=== PATIENT | female | born 1960 | race Caucasian/White ===

== ENCOUNTER 2025-01-15 17:00 | Inpatient (IN) | payer MEDICARE, OTHER ==
[~2025-01-15] VITALS: Ht 152.4 cm; Wt 57.2 kg
[2025-01-15 17:53] LABS: BASOPHILS # (AUTO) 0.1 K/uL (0.0-0.2); EOSINOPHILS # (AUTO) 0.8 K/uL (0.0-0.7); EOSINOPHILS % (AUTO) 5.7 % (0.0-6.0); HEMATOCRIT 28 % (33-45); HEMOGLOBIN 8.9 g/dL (11.5-14.8); LYMPHOCYTES # (AUTO) 1.5 K/uL (0.8-4.8); LYMPHOCYTES % (AUTO) 11.1 % (20.0-44.0); MEAN CORPUSCULAR HEMOGLOBIN 21 PG (26.0-33.0); MEAN CORPUSCULAR HGB CONC 31 g/dl (31.0-36.0); MEAN CORPUSCULAR VOLUME 67 fL (82-100); MONOCYTES # (AUTO) 0.9 K/uL (0.1-1.30); NEUTROPHILS # (AUTO) 10.2 K/uL (1.8-8.9); NEUTROPHILS % (AUTO) 75.2 % (43.0-81.0); PLATELET COUNT (AUTO) 181 K/uL (150-450); RED BLOOD CELL COUNT(AUTO) 4.27 MIL/uL (4.0-5.2); RED CELL DISTRIBUTION WIDTH 17.9 % (11.5-15.0); WHITE BLOOD COUNT (AUTO) 13.5 K/uL (4.3-11.0)
[2025-01-15 20:13] LABS: CALCIUM, SERUM 7.5 mg/dL (8.5-10.1); CARBON DIOXIDE 22 mmol/L (21-32); CHLORIDE 100 mmol/L (98-107); GLUCOSE 108 mg/dL (74-106); POTASSIUM 5.5 mmol/L (3.5-5.1); SODIUM SERUM 136 mmol/L (136-145); UREA NITROGEN, BLOOD 73 mg/dL (7-18)
[2025-01-15 20:52] LABS: NT-PRO BNP > 25000 pg/mL (0-125)
[2025-01-15] MEDS ORDERED: INSULIN REGULAR, HUMAN 100 UNIT/ML 10 ML VIAL ONE (20:53)
[2025-01-15] MEDS ORDERED: SODIUM POLYSTYRENE SULFONATE 15 G/60 ML BOTTLE ONE ×2 (20:53→20:57)
[2025-01-15] MEDS ORDERED: DEXTROSE 50%-WATER 50 ML DISP.SYRIN ONE (20:53)
[2025-01-15] MEDS: INSULIN REGULAR, HUMAN 100 UNIT/ML 10 ML VIAL IV ONE (21:00)
[2025-01-15] MEDS ORDERED: ONDANSETRON HCL/PF 4 MG/2 ML VIAL IVP PRN (21:00)
[2025-01-15] MEDS: DEXTROSE 50%-WATER 50 ML DISP.SYRIN IV ONE (21:00)
[2025-01-15] MEDS: ALBUTEROL FS 2.5 MG/3 ML VIAL.NEB NEB ONE (21:02)
[2025-01-15] MEDS ORDERED: ALBUTEROL FS 2.5 MG/3 ML VIAL.NEB ONE (21:04)
[2025-01-15] MEDS: SODIUM POLYSTYRENE SULFONATE 15 G/60 ML BOTTLE PO ONE (21:05)
[2025-01-15 21:10] VITALS: O2SAT 95
[2025-01-15 22:10] VITALS: O2SAT 99
[2025-01-15 22:17] LABS: EOSINOPHILS % (MANUAL) 6 % (0-4); LYMPHOCYTES % (MANUAL) 5 % (16-48); MONOCYTES % (MANUAL) 6 % (0-11.0); NEUTROPHILS % (MANUAL) 78 (42-76)
[2025-01-15 22:18] LABS: PLATELET ESTIMATE ADEQUATE
[2025-01-15 22:19] LABS: ANISOCYTOSIS 1+
[2025-01-15] MEDS: ACETAMINOPHEN 325 MG TABLET PO PRN (22:30)
[2025-01-16] VITALS (8 sets, daily range): BP systolic 145–163; BP diastolic 81–102; TEMP 97–98.8; O2SAT 91–99
[2025-01-16 06:56] LABS: CALCIUM, SERUM 7.4 mg/dL (8.5-10.1); CARBON DIOXIDE 21 mmol/L (21-32); CHLORIDE 106 mmol/L (98-107); CREATININE 6.5 mg/dL (0.6-1.3); GLUCOSE 91 mg/dL (74-106); MAGNESIUM 1.7 mg/dL (1.8-2.4); POTASSIUM 5.9 mmol/L (3.5-5.1); SODIUM SERUM 142 mmol/L (136-145); UREA NITROGEN, BLOOD 74 mg/dL (7-18)
[2025-01-16 07:14] LABS: BASOPHILS # (AUTO) 0.2 K/uL (0.0-0.2); BASOPHILS % (AUTO) 1.3 % (0.0-2.0); EOSINOPHILS # (AUTO) 0.4 K/uL (0.0-0.7); HEMATOCRIT 32 % (33-45); LYMPHOCYTES # (AUTO) 2.4 K/uL (0.8-4.8); LYMPHOCYTES % (AUTO) 20.8 % (20.0-44.0); MEAN CORPUSCULAR HEMOGLOBIN 21 PG (26.0-33.0); MEAN CORPUSCULAR HGB CONC 29 g/dl (31.0-36.0); MEAN CORPUSCULAR VOLUME 73 fL (82-100); MONOCYTES # (AUTO) 0.6 K/uL (0.1-1.30); MONOCYTES % (AUTO) 5.5 % (2.0-12.0); NEUTROPHILS # (AUTO) 7.8 K/uL (1.8-8.9); NEUTROPHILS % (AUTO) 68.4 % (43.0-81.0); PLATELET COUNT (AUTO) 197 K/uL (150-450); RED BLOOD CELL COUNT(AUTO) 4.32 MIL/uL (4.0-5.2); WHITE BLOOD COUNT (AUTO) 11.4 K/uL (4.3-11.0)
[2025-01-16] MEDS: PANTOPRAZOLE 40 MG TABLET.DR PO SCH (08:15)
[2025-01-16 11:08] LABS: ANISOCYTOSIS 1+; EOSINOPHILS % (MANUAL) 3 % (0-4); LYMPHOCYTES % (MANUAL) 10 % (16-48); MONOCYTES % (MANUAL) 3 % (0-11.0); NEUTROPHILS % (MANUAL) 84 (42-76); PLATELET ESTIMATE ADEQUATE
[2025-01-16] MEDS ORDERED: HYDR-4077 PO (11:46)
[2025-01-16] MEDS ORDERED: MULT1TAB70 PO (11:46)
[2025-01-16] MEDS ORDERED: LORA-259 PO (11:46)
[2025-01-16] MEDS ORDERED: HEPA50007 SQ (11:46)
[2025-01-16] MEDS ORDERED: CLONIDINE PATCH TP (11:46)
[2025-01-16] MEDS ORDERED: VANC250C12 PO (11:46)
[2025-01-16] MEDS ORDERED: CARV6.252 PO (11:46)
[2025-01-16] MEDS ORDERED: ACET160L44 PO (11:46)
[2025-01-16] MEDS ORDERED: ACETAMINOPHEN PO PRN (12:30)
[2025-01-16] MEDS: hydrALAZINE HCL 50 MG TABLET PO SCH (13:00)
[2025-01-16] MEDS: ALTEPLASE CATHFLO 2 MG/VIAL XX ONE (14:17)
[2025-01-16] MEDS: LORAZEPAM 1 MG TABLET PO PRN (14:28)
[2025-01-16] MEDS: CARVEDILOL 6.25 MG TABLET PO SCH (16:27)
[2025-01-16] MEDS: DEXTROSE 50%-WATER 50 ML DISP.SYRIN IVP ONE (18:39)
[2025-01-16] MEDS: Calcium Gluconate 1GM/10ML 4.65 MEQ in IV NS 0.9% 100 ML IV ONE (19:01)
[2025-01-16] MEDS: INSULIN REGULAR, HUMAN 100 UNIT/ML 10 ML VIAL IV ONE (19:01)
[2025-01-16] MEDS: ALBUTEROL FS 2.5 MG/3 ML VIAL.NEB NEB ONE (20:12)
[2025-01-16] MEDS: HEPARIN SODIUM, PORCINE 5000 UNITS/1 ML VIAL SQ SCH (21:00)
[2025-01-16 21:54] LABS: CALCIUM, SERUM 7.5 mg/dL (8.5-10.1); CREATININE 6.8 mg/dL (0.6-1.3)
[2025-01-16] MEDS ORDERED: SODIUM POLYSTYRENE SULFONATE 15 G/60 ML BOTTLE PO ONE (23:30)
[2025-01-16] MEDS: SODIUM POLYSTYRENE SULFONATE 15 G/60 ML BOTTLE PO ONE (23:52)
[2025-01-17] VITALS (8 sets, daily range): BP systolic 121–171; BP diastolic 80–95; TEMP 96.8–98.2; O2SAT 91–97
[2025-01-17] MEDS: ZOLPIDEM TARTRATE 5 MG TABLET PO PRN (00:16)
[2025-01-17 05:10] LABS: HEPATITIS B SURFACE AB (QUAL) Non Reactive (.)
[2025-01-17 06:42] LABS: BASOPHILS # (AUTO) 0.1 K/uL (0.0-0.2); BASOPHILS % (AUTO) 1.2 % (0.0-2.0); EOSINOPHILS # (AUTO) 0.5 K/uL (0.0-0.7); EOSINOPHILS % (AUTO) 4.1 % (0.0-6.0); HEMATOCRIT 26 % (33-45); LYMPHOCYTES # (AUTO) 1.2 K/uL (0.8-4.8); LYMPHOCYTES % (AUTO) 10.5 % (20.0-44.0); MEAN CORPUSCULAR HEMOGLOBIN 20 PG (26.0-33.0); MEAN CORPUSCULAR HGB CONC 31 g/dl (31.0-36.0); MEAN CORPUSCULAR VOLUME 66 fL (82-100); MONOCYTES # (AUTO) 0.6 K/uL (0.1-1.30); MONOCYTES % (AUTO) 5.4 % (2.0-12.0); NEUTROPHILS # (AUTO) 8.9 K/uL (1.8-8.9); NEUTROPHILS % (AUTO) 78.8 % (43.0-81.0); PLATELET COUNT (AUTO) 212 K/uL (150-450); RED BLOOD CELL COUNT(AUTO) 3.96 MIL/uL (4.0-5.2); RED CELL DISTRIBUTION WIDTH 17.5 % (11.5-15.0); WHITE BLOOD COUNT (AUTO) 11.3 K/uL (4.3-11.0)
[2025-01-17 07:09] LABS: CALCIUM, SERUM 7.7 mg/dL (8.5-10.1); POTASSIUM 5.8 mmol/L (3.5-5.1)
[2025-01-17 07:32] LABS: MAGNESIUM 1.5 mg/dL (1.8-2.4)
[2025-01-17 07:45] LABS: PHOSPHORUS 10.9 mg/dL (2.5-4.9)
[2025-01-17 08:58] LABS: HYPOCHROMASIA 1+; PLATELET ESTIMATE ADEQUATE
[2025-01-17 08:59] LABS: ANISOCYTOSIS 1+
[2025-01-17] MEDS: MULTIVITAMINS,THERAGRAN 1 UDTAB TABLET PO SCH (09:45)
[2025-01-17] MEDS: SODIUM ZIRCONIUM CYCLOSILICATE 10 GM POWD.PACK PO SCH (12:05)
[2025-01-17] MEDS: VANCOMYCIN HCL 125 MG/2.5 ML ORAL.SUSP PO SCH (12:06)
[2025-01-17] MEDS: CALCIUM ACETATE 667 MG CAP/TAB PO SCH (12:06)
[2025-01-17] MEDS: SEVELAMER CARBONATE 800 MG TABLET PO SCH (12:06)
[2025-01-17] MEDS: ALPRAZOLAM 0.25 MG TABLET PO PRN (14:18)
[2025-01-17] MEDS: EPOETIN ALFA (10,000 UNIT) 10,000 UNIT/ML VIAL SQ SCH (14:26)
[2025-01-17] MEDS: ALBUTEROL HALF STRENGTH 1.25 MG/3 ML VIAL.NEB NEB SCH (16:00)
[2025-01-17] MEDS: IPRATROPIUM NEB FS 0.5 MG/2.5 ML AMPUL.NEB NEB SCH (16:00)
[2025-01-17 16:06] LABS: ABG BASE EXCESS -0.7 mmol/L (-2.0-3.0); ABG OXYGEN SATURATION 92.5 % (94.0-98.0); ABG PCO2 47.8 mmHg (32.0-45.0); ABG PO2 74.4 mmHg (83.0-108.0); ABG TOTAL HEMOGLOBIN 9.3 G/dL (12.0-16.0); COHb 0.3 % (0.5-1.5); MetHb 0.1 % (0.0-1.5); O2Hb 92.1 % (94.0-97.0); SITE, ABG RIGHT RADIAL
[2025-01-17] MEDS: CEFEPIME 1 GM in IV D5W 50 ML IV SCH (17:37)
[2025-01-17 18:27] LABS: ABG BASE EXCESS -0.1 mmol/L (-2.0-3.0); ABG PCO2 40.3 mmHg (32.0-45.0); ABG PH 7.403 (7.350-7.450); ABG PO2 62.1 mmHg (83.0-108.0); ABG TOTAL HEMOGLOBIN 9.3 G/dL (12.0-16.0); COHb 0.1 % (0.5-1.5); MetHb 0.3 % (0.0-1.5); O2Hb 89.6 % (94.0-97.0); SITE, ABG LEFT RADIAL
[2025-01-17] MEDS: DOXYCYCLINE 100 MG in IV D5W 100 ML IV SCH (21:23)
[2025-01-18] VITALS (14 sets, daily range): BP systolic 131–162; BP diastolic 84–95; TEMP 97.9–98.6; O2SAT 92–99
[2025-01-18 11:01] LABS: BASOPHILS # (AUTO) 0.1 K/uL (0.0-0.2); EOSINOPHILS # (AUTO) 0.3 K/uL (0.0-0.7); HEMATOCRIT 27 % (33-45); HEMOGLOBIN 8.3 g/dL (11.5-14.8); LYMPHOCYTES # (AUTO) 0.8 K/uL (0.8-4.8); LYMPHOCYTES % (AUTO) 9.7 % (20.0-44.0); MEAN CORPUSCULAR HEMOGLOBIN 20 PG (26.0-33.0); MEAN CORPUSCULAR HGB CONC 31 g/dl (31.0-36.0); MEAN CORPUSCULAR VOLUME 66 fL (82-100); MONOCYTES # (AUTO) 0.5 K/uL (0.1-1.30); MONOCYTES % (AUTO) 6.3 % (2.0-12.0); NEUTROPHILS # (AUTO) 6.9 K/uL (1.8-8.9); PLATELET COUNT (AUTO) 187 K/uL (150-450); RED BLOOD CELL COUNT(AUTO) 4.11 MIL/uL (4.0-5.2); RED CELL DISTRIBUTION WIDTH 17.4 % (11.5-15.0); WHITE BLOOD COUNT (AUTO) 8.6 K/uL (4.3-11.0)
[2025-01-18 11:17] LABS: CALCIUM, SERUM 7.9 mg/dL (8.5-10.1); CREATININE 5.3 mg/dL (0.6-1.3)
[2025-01-18 14:32] LABS: INR 1.02 (0.91-1.10); PROTHROMBIN TIME 10.8 SECS (9.2-11.1)
[2025-01-19] VITALS (14 sets, daily range): BP systolic 119–159; BP diastolic 74–102; TEMP 97.9–98.4; O2SAT 92–100
[2025-01-19 07:32] LABS: BASOPHILS # (AUTO) 0.1 K/uL (0.0-0.2); BASOPHILS % (AUTO) 1.2 % (0.0-2.0); EOSINOPHILS # (AUTO) 0.4 K/uL (0.0-0.7); HEMATOCRIT 25 % (33-45); LYMPHOCYTES # (AUTO) 0.9 K/uL (0.8-4.8); LYMPHOCYTES % (AUTO) 12.3 % (20.0-44.0); MEAN CORPUSCULAR HEMOGLOBIN 21 PG (26.0-33.0); MEAN CORPUSCULAR HGB CONC 32 g/dl (31.0-36.0); MEAN CORPUSCULAR VOLUME 65 fL (82-100); MONOCYTES # (AUTO) 0.6 K/uL (0.1-1.30); MONOCYTES % (AUTO) 7.5 % (2.0-12.0); NEUTROPHILS # (AUTO) 5.6 K/uL (1.8-8.9); PLATELET COUNT (AUTO) 194 K/uL (150-450); RED BLOOD CELL COUNT(AUTO) 3.82 MIL/uL (4.0-5.2); WHITE BLOOD COUNT (AUTO) 7.5 K/uL (4.3-11.0)
[2025-01-19 08:10] LABS: CALCIUM, SERUM 8.5 mg/dL (8.5-10.1); CREATININE 5.9 mg/dL (0.6-1.3); POTASSIUM 4.5 mmol/L (3.5-5.1)
[2025-01-19 16:48] LABS: PROTEIN, BODY FLUID 3.8 G/DL
[2025-01-19 18:33] LABS: APPEARANCE,SPUN,BODY FLUID CLEAR (CLEAR); TOTAL VOLUME,BODY FLUID 1500 mL; WBC, BODY FLUID 1508 /cu. mm. (0-200)
[2025-01-19 18:42] LABS: MONOCYTES,BODY FLUID 4 %
[2025-01-20] VITALS (11 sets, daily range): BP systolic 125–143; BP diastolic 74–91; TEMP 97.1–99.1; O2SAT 94–98
[2025-01-20 07:13] LABS: BASOPHILS # (AUTO) 0.1 K/uL (0.0-0.2); BASOPHILS % (AUTO) 1.2 % (0.0-2.0); EOSINOPHILS # (AUTO) 0.4 K/uL (0.0-0.7); EOSINOPHILS % (AUTO) 5.9 % (0.0-6.0); HEMATOCRIT 24 % (33-45); HEMOGLOBIN 7.6 g/dL (11.5-14.8); LYMPHOCYTES # (AUTO) 0.9 K/uL (0.8-4.8); LYMPHOCYTES % (AUTO) 14.1 % (20.0-44.0); MEAN CORPUSCULAR HEMOGLOBIN 21 PG (26.0-33.0); MEAN CORPUSCULAR HGB CONC 32 g/dl (31.0-36.0); MEAN CORPUSCULAR VOLUME 66 fL (82-100); MONOCYTES # (AUTO) 0.7 K/uL (0.1-1.30); MONOCYTES % (AUTO) 10.8 % (2.0-12.0); NEUTROPHILS # (AUTO) 4.6 K/uL (1.8-8.9); PLATELET COUNT (AUTO) 223 K/uL (150-450); RED BLOOD CELL COUNT(AUTO) 3.69 MIL/uL (4.0-5.2); RED CELL DISTRIBUTION WIDTH 16.4 % (11.5-15.0); WHITE BLOOD COUNT (AUTO) 6.7 K/uL (4.3-11.0)
[2025-01-20 07:34] LABS: CALCIUM, SERUM 7.6 mg/dL (8.5-10.1); CREATININE 3.9 mg/dL (0.6-1.3); POTASSIUM 4.2 mmol/L (3.5-5.1)
[2025-01-20] MEDS: DOXYCYCLINE HYCLATE (100 MG) 100 MG TABLET PO SCH (08:18)
[2025-01-21] VITALS (11 sets, daily range): BP systolic 134–157; BP diastolic 77–91; TEMP 97.5–98.4; O2SAT 92–100
[2025-01-21 07:07] LABS: BASOPHILS # (AUTO) 0.1 K/uL (0.0-0.2); BASOPHILS % (AUTO) 0.8 % (0.0-2.0); EOSINOPHILS # (AUTO) 0.5 K/uL (0.0-0.7); EOSINOPHILS % (AUTO) 6.8 % (0.0-6.0); HEMATOCRIT 23 % (33-45); HEMOGLOBIN 7.2 g/dL (11.5-14.8); LYMPHOCYTES % (AUTO) 14.3 % (20.0-44.0); MEAN CORPUSCULAR HEMOGLOBIN 21 PG (26.0-33.0); MEAN CORPUSCULAR HGB CONC 31 g/dl (31.0-36.0); MEAN CORPUSCULAR VOLUME 66 fL (82-100); MONOCYTES # (AUTO) 0.7 K/uL (0.1-1.30); MONOCYTES % (AUTO) 9.3 % (2.0-12.0); NEUTROPHILS % (AUTO) 68.8 % (43.0-81.0); PLATELET COUNT (AUTO) 234 K/uL (150-450); RED BLOOD CELL COUNT(AUTO) 3.49 MIL/uL (4.0-5.2); RED CELL DISTRIBUTION WIDTH 16.6 % (11.5-15.0); WHITE BLOOD COUNT (AUTO) 7.3 K/uL (4.3-11.0)
[2025-01-21 07:34] LABS: CALCIUM, SERUM 7.8 mg/dL (8.5-10.1); CREATININE 5.3 mg/dL (0.6-1.3); POTASSIUM 4.4 mmol/L (3.5-5.1)
[2025-01-21] MEDS: EPOETIN ALFA (10,000 UNIT) 10,000 UNIT/ML VIAL SQ ONE (10:53)
[2025-01-21] MEDS: TRAMADOL HCL 50 MG TABLET PO SCH (13:59)
[2025-01-21] MEDS: QUETIAPINE FUMARATE 25 MG TABLET PO SCH (17:25)
[2025-01-22] VITALS (11 sets, daily range): BP systolic 108–164; BP diastolic 76–99; TEMP 97.5–98.6; O2SAT 91–100
[2025-01-22 07:36] LABS: CALCIUM, SERUM 8.4 mg/dL (8.5-10.1); CREATININE 3.7 mg/dL (0.6-1.3); POTASSIUM 4.4 mmol/L (3.5-5.1)
[2025-01-22 08:25] LABS: BASOPHILS # (AUTO) 0.1 K/uL (0.0-0.2); EOSINOPHILS # (AUTO) 0.4 K/uL (0.0-0.7); EOSINOPHILS % (AUTO) 6.4 % (0.0-6.0); HEMATOCRIT 24 % (33-45); HEMOGLOBIN 7.5 g/dL (11.5-14.8); LYMPHOCYTES # (AUTO) 1.1 K/uL (0.8-4.8); MEAN CORPUSCULAR HEMOGLOBIN 21 PG (26.0-33.0); MEAN CORPUSCULAR HGB CONC 32 g/dl (31.0-36.0); MEAN CORPUSCULAR VOLUME 67 fL (82-100); MONOCYTES # (AUTO) 0.6 K/uL (0.1-1.30); MONOCYTES % (AUTO) 9.7 % (2.0-12.0); NEUTROPHILS # (AUTO) 4.2 K/uL (1.8-8.9); NEUTROPHILS % (AUTO) 65.9 % (43.0-81.0); PLATELET COUNT (AUTO) 216 K/uL (150-450); RED BLOOD CELL COUNT(AUTO) 3.58 MIL/uL (4.0-5.2); RED CELL DISTRIBUTION WIDTH 16.8 % (11.5-15.0); WHITE BLOOD COUNT (AUTO) 6.4 K/uL (4.3-11.0)
[2025-01-22] MEDS ORDERED: OLANZAPINE 10 MG VIAL IM PRN (11:30)
[2025-01-23] VITALS (10 sets, daily range): BP systolic 117–155; BP diastolic 71–95; TEMP 97.9–98.2; O2SAT 91–98
[2025-01-23 11:52] LABS: BASOPHILS % (AUTO) 0.6 % (0.0-2.0); EOSINOPHILS # (AUTO) 0.4 K/uL (0.0-0.7); EOSINOPHILS % (AUTO) 5.8 % (0.0-6.0); HEMATOCRIT 25 % (33-45); HEMOGLOBIN 7.6 g/dL (11.5-14.8); LYMPHOCYTES % (AUTO) 16.2 % (20.0-44.0); MEAN CORPUSCULAR HEMOGLOBIN 21 PG (26.0-33.0); MEAN CORPUSCULAR HGB CONC 31 g/dl (31.0-36.0); MEAN CORPUSCULAR VOLUME 67 fL (82-100); MONOCYTES # (AUTO) 0.6 K/uL (0.1-1.30); MONOCYTES % (AUTO) 9.5 % (2.0-12.0); NEUTROPHILS # (AUTO) 4.3 K/uL (1.8-8.9); NEUTROPHILS % (AUTO) 67.9 % (43.0-81.0); PLATELET COUNT (AUTO) 234 K/uL (150-450); RED BLOOD CELL COUNT(AUTO) 3.69 MIL/uL (4.0-5.2); RED CELL DISTRIBUTION WIDTH 16.8 % (11.5-15.0); WHITE BLOOD COUNT (AUTO) 6.3 K/uL (4.3-11.0)
[2025-01-23 12:02] LABS: CALCIUM, SERUM 8.5 mg/dL (8.5-10.1); CREATININE 4.9 mg/dL (0.6-1.3); POTASSIUM 4.8 mmol/L (3.5-5.1)
[2025-01-23 12:08] LABS: MAGNESIUM 1.8 mg/dL (1.8-2.4); PHOSPHORUS 5.6 mg/dL (2.5-4.9)
[2025-01-23] MEDS ORDERED: PANT40TA49 PO (15:48)
[2025-01-23] MEDS ORDERED: EPOE1VIA7 SQ (15:48)
[2025-01-23] MEDS ORDERED: SEVE800T7 PO (15:48)
[2025-01-23] MEDS ORDERED: ALPR0.255 PO (15:48)
[2025-01-23] MEDS ORDERED: Quetiapine Fumarate PO (15:48)
== END 2025-01-23 20:20 | DRG 177 ==
LOC: ER 17:08 → TELE1 20:39 → MEDSG1 01-19 13:39
PROVIDERS: ADMIT Nurse Practitioner Family; ATTEND Nurse Practitioner Acute Care
PROC: 5A1D70Z Performance of Urinary Filtration, Intermittent, Less than 6 Hours Per Day (ICD-10-PCS; principal; 2025-01-16)
PROC: 0W9B3ZX Drainage of Left Pleural Cavity, Percutaneous Approach, Diagnostic (ICD-10-PCS; 2025-01-19)
DX: J15.69 Pneumonia due to other Gram-negative bacteria (principal); J96.21 Acute and chronic respiratory failure with hypoxia; N18.6 End stage renal disease; I12.0 Hypertensive chronic kidney disease with stage 5 chronic kidney disease or end stage renal disease; J81.1 Chronic pulmonary edema; J90 Pleural effusion, not elsewhere classified; J44.0 Chronic obstructive pulmonary disease with (acute) lower respiratory infection; E87.1 Hypo-osmolality and hyponatremia; E87.70 Fluid overload, unspecified; E87.5 Hyperkalemia; I25.10 Atherosclerotic heart disease of native coronary artery without angina pectoris; M89.8X9 Other specified disorders of bone, unspecified site; M41.9 Scoliosis, unspecified; F31.9 Bipolar disorder, unspecified; Z99.2 Dependence on renal dialysis; Z91.199 Patient's noncompliance with other medical treatment and regimen due to unspecified reason; G47.33 Obstructive sleep apnea (adult) (pediatric); Z71.6 Tobacco abuse counseling; D63.8 Anemia in other chronic diseases classified elsewhere; F17.210 Nicotine dependence, cigarettes, uncomplicated; F41.9 Anxiety disorder, unspecified; N25.0 Renal osteodystrophy
CPT/HCPCS: 36415; 71045-TC; 71250-TC; 80048-TC; 82803-TC; 82962-TC; 83735-TC; 83880; 84100-TC; 84443-TC; 84484-TC; 85025-TC; 85610-TC; 86706; 87070-TC; 87081-TC; 87102-TC; 87340; 89051-TC; 90935-TC; 94760-TC; 94761-TC; 94799-TC; 97110-TC; 97116-TC; 97530-TC; 97535-TC; A4223; G0378; J0612; J0692; J0885; J1644; J1815; J2997; J3490; J7030; J7040; J7050; J7060

== ENCOUNTER 2025-07-03 17:29 | Inpatient (IN) | payer MEDICARE, OTHER ==
[~2025-07-03] VITALS: Ht 144.8 cm; Wt 51.3 kg
[~2025-07-03 17:29] MED LIST: ACET160L44 PO; ALPR0.255 PO; CARV6.252 PO; CLONIDINE PATCH TP; EPOE1VIA7 SQ; HEPA50007 SQ; HYDR-4077 PO; MULT1TAB70 PO; PANT40TA49 PO; Quetiapine Fumarate PO; SEVE800T7 PO; VANC250C12 PO
[2025-07-03 18:13] LABS: PLATELET COUNT (AUTO) 226 K/uL (150-450); RED BLOOD CELL COUNT(AUTO) 5.63 MIL/uL (4.0-5.2); RED CELL DISTRIBUTION WIDTH 17.9 % (11.5-15.0); WHITE BLOOD COUNT (AUTO) 6.4 K/uL (4.3-11.0)
[2025-07-03 18:24] LABS: INR 1.0 (0.91-1.10)
[2025-07-03 18:25] LABS: CALCIUM, SERUM 9.2 mg/dL (8.5-10.1); CREATININE 6.8 mg/dL (0.6-1.3); SODIUM SERUM 138.0 mmol/L (136-145); UREA NITROGEN, BLOOD 51.0 mg/dL (7-18)
[2025-07-03 20:00] VITALS: BP 147/91; TEMP 97.9; O2SAT 94
[2025-07-03] MEDS ORDERED: ACETAMINOPHEN 325 MG TABLET PO PRN (20:30)
[2025-07-03] MEDS ORDERED: ALBUTEROL FS 2.5 MG/3 ML VIAL.NEB NEB PRN (20:30)
[2025-07-03] MEDS ORDERED: MAG HYDROX/AL HYDROX/SIMETH 30 ML UDC PO PRN (20:30)
[2025-07-03] MEDS ORDERED: MAGNESIUM HYDROXIDE 30 ML UDC PO PRN (20:30)
[2025-07-03] MEDS ORDERED: ONDANSETRON HCL/PF 4 MG/2 ML VIAL IVP PRN (20:30)
[2025-07-03] MEDS ORDERED: IPRATROPIUM NEB FS 0.5 MG/2.5 ML AMPUL.NEB NEB PRN (20:30)
[2025-07-03] MEDS ORDERED: Z GUARD REMEDY 4 OZ OINT TP PRN (20:30)
[2025-07-03] MEDS ORDERED: ALPRAZOLAM 0.25 MG TABLET PO PRN (20:30)
[2025-07-03] MEDS: TEMAZEPAM 15 MG CAPSULE PO PRN (23:48)
[2025-07-04 08:31] VITALS: BP 133/89; TEMP 98.4; O2SAT 97
[2025-07-04] MEDS: MULTIVITAMINS,THERAGRAN 1 UDTAB TABLET PO SCH (08:45)
[2025-07-04] MEDS: SEVELAMER CARBONATE 800 MG TABLET PO SCH ×2 (08:45→13:14)
[2025-07-04] MEDS: CARVEDILOL 6.25 MG TABLET PO SCH (08:46)
[2025-07-04] MEDS: PANTOPRAZOLE 40 MG TABLET.DR PO SCH (08:46)
[2025-07-04] MEDS: HEPARIN SODIUM, PORCINE 5000 UNITS/1 ML VIAL SQ SCH (08:48)
[2025-07-04] MEDS ORDERED: TRAM50TA2 PO (09:06)
[2025-07-04] MEDS ORDERED: PERM60CR6 TP (09:06)
[2025-07-04] MEDS ORDERED: SEVE800T7 PO (09:06)
[2025-07-04] MEDS ORDERED: CLON1PAT TD (09:06)
[2025-07-04] MEDS ORDERED: DIVA125C2 PO (09:06)
[2025-07-04] MEDS ORDERED: SODI10PO PO (09:06)
[2025-07-04 10:32] LABS: PLATELET COUNT (AUTO) 226 K/uL (150-450); RED BLOOD CELL COUNT(AUTO) 5.01 MIL/uL (4.0-5.2); RED CELL DISTRIBUTION WIDTH 17.3 % (11.5-15.0); WHITE BLOOD COUNT (AUTO) 6.9 K/uL (4.3-11.0)
[2025-07-04 10:55] LABS: CALCIUM, SERUM 8.8 mg/dL (8.5-10.1); PHOSPHORUS 4.8 mg/dL (2.5-4.9); SODIUM SERUM 139.0 mmol/L (136-145); UREA NITROGEN, BLOOD 60.0 mg/dL (7-18)
[2025-07-04 11:45] LABS: CREATININE 7.3 mg/dL (0.6-1.3)
[2025-07-04] MEDS ORDERED: TRAMADOL HCL 50 MG TABLET PO PRN (12:00)
[2025-07-04] MEDS: LORAZEPAM 0.5 MG TABLET PO PRN (13:10)
[2025-07-04] MEDS: HYDROCODONE/APAP 5/325MG TABLET PO PRN (13:14)
[2025-07-04] MEDS: EPOETIN ALFA (10,000 UNIT) 10,000 UNIT/ML VIAL SQ SCH (15:10)
[2025-07-04 16:15] VITALS: BP 127/95; TEMP 97.8; O2SAT 95
[2025-07-04] MEDS: DIVALPROEX SODIUM 125 MG CAP.SPRINK PO SCH (17:11)
[2025-07-04] MEDS: QUETIAPINE FUMARATE 25 MG TABLET PO SCH (17:11)
[2025-07-04 19:37] LABS: LDL 76.0 mg/dL (0-99)
[2025-07-04 20:00] VITALS: BP 159/88; TEMP 97.5; O2SAT 100
[2025-07-05 00:30] VITALS: BP 115/68; TEMP 97.8; O2SAT 97
[2025-07-05 07:45] LABS: SERUM AMMONIA 22 umol/L (11-32)
[2025-07-05 07:51] LABS: PLATELET COUNT (AUTO) 214 K/uL (150-450); RED BLOOD CELL COUNT(AUTO) 4.99 MIL/uL (4.0-5.2); RED CELL DISTRIBUTION WIDTH 18.5 % (11.5-15.0); WHITE BLOOD COUNT (AUTO) 7.6 K/uL (4.3-11.0)
[2025-07-05 08:00] VITALS: BP 144/64; TEMP 99.1; O2SAT 100
[2025-07-05 08:01] LABS: CALCIUM, SERUM 8.6 mg/dL (8.5-10.1); CREATININE 4.3 mg/dL (0.6-1.3); PHOSPHORUS 2.7 mg/dL (2.5-4.9); SODIUM SERUM 140.0 mmol/L (136-145); UREA NITROGEN, BLOOD 36.0 mg/dL (7-18)
[2025-07-05] MEDS: PANTOPRAZOLE 40 MG TABLET.DR PO SCH (08:02)
[2025-07-05 08:09] LABS: VALPROIC ACID 21 ug/mL (50-100)
[2025-07-05 08:58] LABS: ASPARTATE AMINOTRANSFERASE 35 U/L (15-37); TOTAL PROTEIN, SERUM 7.2 g/dL (6.4-8.2)
[2025-07-05] MEDS ORDERED: PERMETHRIN 5% CRM 60 GM TUBE TP SCH (09:00)
[2025-07-05] MEDS: SODIUM ZIRCONIUM CYCLOSILICATE 10 GM POWD.PACK PO SCH (09:08)
[2025-07-05 16:00] VITALS: BP 138/90; TEMP 98; O2SAT 100
[2025-07-05 20:00] VITALS: BP 123/74; TEMP 97.9; O2SAT 96
[2025-07-05 23:05] VITALS: BP 152/79; TEMP 97.2; O2SAT 96
[2025-07-06 07:00] VITALS: BP 148/86; TEMP 97.3; O2SAT 96
[2025-07-06 07:54] LABS: PLATELET COUNT (AUTO) 183 K/uL (150-450); RED BLOOD CELL COUNT(AUTO) 4.79 MIL/uL (4.0-5.2); RED CELL DISTRIBUTION WIDTH 17.4 % (11.5-15.0); WHITE BLOOD COUNT (AUTO) 6.7 K/uL (4.3-11.0)
[2025-07-06 08:06] LABS: CREATININE 2.8 mg/dL (0.6-1.3); PHOSPHORUS 2.3 mg/dL (2.5-4.9); SODIUM SERUM 136.0 mmol/L (136-145); UREA NITROGEN, BLOOD 23.0 mg/dL (7-18)
[2025-07-06 08:39] LABS: CALCIUM, SERUM 7.8 mg/dL (8.5-10.1)
[2025-07-06] MEDS: EPOETIN ALFA (10,000 UNIT) 10,000 UNIT/ML VIAL SQ SCH (09:53)
[2025-07-06] MEDS ORDERED: Quetiapine Fumarate PO (11:16)
[2025-07-06] MEDS ORDERED: Lorazepam PO (11:16)
[2025-07-06 16:00] VITALS: BP 135/81; TEMP 97.5; O2SAT 98
== END 2025-07-06 16:43 | DRG 682 ==
LOC: ER 17:36 → TELE 19:55 → MED 21:02
PROVIDERS: ADMIT Nurse Practitioner Acute Care; ATTEND Student in an Organized Health Care Education/Training Program
PROC: 5A1D70Z Performance of Urinary Filtration, Intermittent, Less than 6 Hours Per Day (ICD-10-PCS; principal; 2025-07-04)
DX: I12.0 Hypertensive chronic kidney disease with stage 5 chronic kidney disease or end stage renal disease (principal); N18.6 End stage renal disease; J90 Pleural effusion, not elsewhere classified; F03.92 Unspecified dementia, unspecified severity, with psychotic disturbance; Z99.2 Dependence on renal dialysis; F29 Unspecified psychosis not due to a substance or known physiological condition; J44.9 Chronic obstructive pulmonary disease, unspecified; D63.1 Anemia in chronic kidney disease; F03.93 Unspecified dementia, unspecified severity, with mood disturbance; F03.94 Unspecified dementia, unspecified severity, with anxiety; I25.10 Atherosclerotic heart disease of native coronary artery without angina pectoris; F31.9 Bipolar disorder, unspecified; M41.9 Scoliosis, unspecified; Z79.899 Other long term (current) drug therapy; Z79.01 Long term (current) use of anticoagulants; Z91.158 Patient's noncompliance with renal dialysis for other reason; F17.210 Nicotine dependence, cigarettes, uncomplicated; Z71.6 Tobacco abuse counseling; Z86.19 Personal history of other infectious and parasitic diseases; G47.30 Sleep apnea, unspecified; F41.9 Anxiety disorder, unspecified; E87.5 Hyperkalemia; M89.8X9 Other specified disorders of bone, unspecified site; Z87.09 Personal history of other diseases of the respiratory system
CPT/HCPCS: 36415; 71045-TC; 80048-TC; 80061-TC; 80076-TC; 80164-TC; 82140-TC; 83735-TC; 84100-TC; 85025-TC; 85730-TC; 86317; 87081-TC; 87340; 90935-TC; 97110-TC; 97116-TC; 97530-TC; G0378; J0885; J1644; J7030